=== PATIENT | female | born 1970 | race Hispanic/Latino ===

== ENCOUNTER 2021-02-14 20:52 | Emergency (ER) | payer MEDICAID ==
[2021-02-14] MEDS ORDERED: ORPHENADRINE CITRATE 30 MG/ML ML ONE (22:05)
[2021-02-14] MEDS ORDERED: KETOROLAC TROMETHAMINE 30MG/ML ONE (22:06)
[2021-02-14] MEDS ORDERED: LIDOCAINE 5% TOPICAL PATCH TP ONE (22:06)
== END 2021-02-15 00:25 | disposition home or self-care (01) ==
LOC: EDH 20:52
DX: M62.830 Muscle spasm of back (principal); M54.5 Low back pain
CPT/HCPCS: 72131; 96372 ×2; 99284; J1885; J2360

== ENCOUNTER 2021-08-06 18:28 | Emergency (ER) | payer MEDICAID ==
[~2021-08-06] VITALS: Ht 149.9 cm; Wt 49.9 kg
[2021-08-06 19:15] LABS: BASOPHILS % (AUTO) 0.3 % (0.0-5.0); EOSINOPHILS % (AUTO) 6.4 % (0.0-8.0); HEMATOCRIT 37.4 % (36-48); LYMPHOCYTES % (AUTO) 17.4 % (21.0-51.0); MEAN CORPUSCULAR HEMOGLOBIN 28.5 pg (27.0-33.0); MEAN CORPUSCULAR HGB CONC 32.4 g/dL (32.0-36.0); NEUTROPHILS % (AUTO) 68.5 % (40.0-77.0); PLATELET COUNT (AUTO) 257 K/uL (130-400); RED BLOOD CELL COUNT(AUTO) 4.25 MIL/uL (4.00-5.50); RED CELL DISTRIBUTION WIDTH 13.3 % (11.0-15.5); WHITE BLOOD COUNT (AUTO) 9.7 K/uL (4.8-10.8)
[2021-08-06 19:16] LABS: APPEARANCE,URINE Clear (CLEAR); BILIRUBIN,URINE Negative (NEGATIVE); COLOR,URINE Yellow (YELLOW); GLUCOSE, URINE (UA) Negative (NEGATIVE); KETONES,URINE Negative (NEGATIVE); LEUKOCYTE ESTERASE ,URINE Negative (NEGATIVE); NITRATE,URINE Negative (NEGATIVE); OCCULT BLOOD,URINE Negative (NEGATIVE); PH,URINE 7.5 (5.0-8.0); PROTEIN,URINE Negative (NEGATIVE)
[2021-08-06 19:24] LABS: CREATININE 0.5 mg/dL (0.5-1.5); POTASSIUM 3.8 mmol/L (3.5-5.1)
[2021-08-06 19:28] LABS: INR 0.97 (0.85-1.15); PROTHROMBIN TIME 10.6 SEC (9.6-11.6)
[2021-08-06 19:29] LABS: PARTIAL THROMBOPLASTIN TIME 28.8 SEC (26.3-35.5)
[2021-08-06 19:33] LABS: B-TYPE NATRIURETIC PEPTIDE 16 pg/mL (0-100)
[2021-08-06 19:40] LABS: ALBUMIN 3.4 g/dL (3.5-5.0); BILIRUBIN,TOTAL 0.3 mg/dL (0.2-1.0); TOTAL PROTEIN, SERUM 7.3 g/dL (6.0-8.3)
[2021-08-06] MEDS ORDERED: CLINDAMYCIN IVPB 600MG/50ML 50 ML IV STA (21:44)
[2021-08-06] MEDS ORDERED: CETIRIZINE HCL 5 MG TABLET PO STA (21:44)
[2021-08-06] MEDS ORDERED: ONDANSETRON 4MG INJ IVP ONE (22:00)
[2021-08-06] MEDS ORDERED: HYDROCODONE/ACETAMINOPHEN 10/325 MG TAB PO ONE (22:00)
[2021-08-07] MEDS ORDERED: LA/L175C PO (00:21)
[2021-08-07] MEDS ORDERED: CLIN-116 PO (00:21)
[2021-08-07] MEDS ORDERED: CETI-89 PO (00:21)
[2021-08-07 00:26] VITALS: BP 95/59
== END 2021-08-07 00:44 | disposition home or self-care (01) ==
LOC: EDH 18:28
DX: J01.40 Acute pansinusitis, unspecified (principal); J30.2 Other seasonal allergic rhinitis; Z88.1 Allergy status to other antibiotic agents
CPT/HCPCS: 36415; 70450; 70486; 71045; 80053; 81003; 82550; 83880; 84484; 85025; 85610; 85730; 93005; 96365; 96375; 99285; J2405; J3490

== ENCOUNTER 2022-03-23 08:22 | Emergency (ER) | payer MEDICAID ==
[~2022-03-23] VITALS: Ht 149.9 cm; Wt 52.2 kg
[~2022-03-23 08:22] MED LIST: CETI-89 PO; CLIN-116 PO; LA/L175C PO
[2022-03-23] MEDS ORDERED: 0.9%NACL 1000ML 1,000 ML IV ONE (08:30)
[2022-03-23] MEDS ORDERED: ACETAMINOPHEN 500 MG TABLET PO ONE (08:30)
[2022-03-23 08:50] LABS: BASOPHILS % (AUTO) 0.1 % (0.0-5.0); EOSINOPHILS % (AUTO) 0.1 % (0.0-8.0); HEMATOCRIT 42.7 % (36-48); LYMPHOCYTES % (AUTO) 10.1 % (21.0-51.0); MEAN CORPUSCULAR HEMOGLOBIN 28.2 pg (27.0-33.0); MEAN CORPUSCULAR VOLUME 85.4 fL (79-99); MONOCYTES % (AUTO) 8.8 % (3.0-13.0); NEUTROPHILS % (AUTO) 80.6 % (40.0-77.0); PLATELET COUNT (AUTO) 234 K/uL (130-400); RED CELL DISTRIBUTION WIDTH 13.2 % (11.0-15.5)
[2022-03-23 09:10] LABS: CREATININE 0.7 mg/dL (0.5-1.5); POTASSIUM 3.7 mmol/L (3.5-5.1)
[2022-03-23 09:14] LABS: ALBUMIN 3.9 g/dL (3.5-5.0); BILIRUBIN,TOTAL 0.7 mg/dL (0.2-1.0); TOTAL PROTEIN, SERUM 8.4 g/dL (6.0-8.3)
[2022-03-23 09:30] LABS: APPEARANCE,URINE Clear (CLEAR); BILIRUBIN,URINE Negative (NEGATIVE); COLOR,URINE Yellow (YELLOW); GLUCOSE, URINE (UA) Negative (NEGATIVE); KETONES,URINE Negative (NEGATIVE); LEUKOCYTE ESTERASE ,URINE Negative (NEGATIVE); NITRATE,URINE Negative (NEGATIVE); OCCULT BLOOD,URINE Negative (NEGATIVE); PROTEIN,URINE Trace mg/dL (NEGATIVE); UROBILINOGEN,URINE 0.2 mg/dL (0.2-1.0)
[2022-03-23 10:19] VITALS: BP 140/89
[2022-03-23 10:26] LABS: BACTERIA,URINE Rare /HPF (None Seen); RBC,URINE 0-1 /HPF (0-1); WBC,URINE 0-1 /HPF (0-1)
[2022-03-23 10:27] LABS: SQUAMOUS EPITHELIAL CELL,UR Few /HPF (0-2)
[2022-03-23] MEDS ORDERED: NIRM1TAB PO (10:27)
== END 2022-03-23 10:45 | disposition home or self-care (01) ==
LOC: EDH 08:22
DX: U07.1 COVID-19 (principal); Z79.899 Other long term (current) drug therapy; Z88.8 Allergy status to other drugs, medicaments and biological substances
CPT/HCPCS: 36415; 80053; 81001; 83605; 85025; 87635; 87804 ×2; 96360; 99283; C9803; J7030

== ENCOUNTER 2022-09-27 16:10 | Emergency (ER) | payer MEDICAID ==
[~2022-09-27] VITALS: Ht 149.9 cm; Wt 56.7 kg
[~2022-09-27 16:10] MED LIST changes: +NIRM1TAB PO
[2022-09-27 16:27] VITALS: BP 139/80
[2022-09-27] MEDS ORDERED: ACETAMINOPHEN 500 MG TABLET PO ONE (18:00)
== END 2022-09-27 18:11 | disposition home or self-care (01) ==
LOC: EDH 16:10
DX: R51.9 Headache, unspecified (principal); E78.00 Pure hypercholesterolemia, unspecified
CPT/HCPCS: 70450